=== PATIENT | female | born 1965 | race Caucasian/White ===

== ENCOUNTER 2024-02-23 15:33 | Emergency (ER) | payer OTHER, SELFPAY ==
[2024-02-23 15:36] VITALS: BP 109/77
--- NOTE | 2024-02-23 15:39 | ED.GENMED ---
ED Provider Triage
<Vanessa Finley PROCESSOR HELPER - Last Filed: 02/23/24 15:49>
-
Patient seen by provider in Triage?: Seen in Triage
Attestation: A medical screening examination has been initiated by a qualified medical provider. Based on the assessment performed at this time, it has been determined that an emergent medical condition may exist and the patient has been informed
that further medical evaluation and possible additional diagnostic testing may be needed.
HPI: 58yo female presents for 2 days ago had chills, achy, went to work, poor appetite, yesterday felt worse, stayed home from work, rested, this a.m. headache, took Migraine pill and h/a has subsided. Feels dizzy, general body aches, denies
n/v/d/c. Denies CP, SOB.
Has left lower tooth abscess, chronic. States it is not painful at this time. Took Amoxicillin, then clindamycin, Now taking PCN (none in past 2 days). Scheduled for tooth excision in [place].
Came here from Urgent Care. Had fever 101.6 there
GENERAL: Alert , in no apparent distress
EYE: No visual abnormalities.
NECK: Trachea midline
ENT: No visible abnormalities.
LUNGS: No acute respiratory distress
NEUROLOGICAL: Alert and oriented
SKIN: Skin intact. No visible changes.
MUSCULOSKELETAL: Moving extremities normally
PSYCH: Normal and appropriate interaction.
This is a medical evaluation conducted in person to initiate diagnostic evaluation and provide initial therapeutics. Please see further documentation by the treating clinician.
History of Present Illness
<Vanessa Finley, PROCESSOR HELPER - Last Filed: 02/23/24 15:49>
General
Chief Complaint: Cold/Flu/URI Symptoms
Time Seen by Provider: 02/23/24 17:31
<Lor Martinez, PROCESSOR HELPER - Last Filed: 02/26/24 23:06>
General
Source: patient
Exam Limitations: none
Nursing documentation reviewed up to this point in time: agreed with
History of Present Illness
History of Present Illness:
Patient to ED with complaint headache, bodyaches, dizziness. SHe reports feeling chills appprox 2-3 days ago. Has been dealing with a dental abscess. Was given a course of PCN with improvement and then tooth began to hurt again She was placed
again on PCN but stopped it 3 days ago when shes started to feel ill. No fever. Brought to ED by spouse for eval.
Past History
<Vanessa Finley, PROCESSOR HELPER - Last Filed: 02/23/24 15:49>
Past History
ED Past Medical History: Other (Frequent, intermittent episodes of left upper quadrant abdominal pain, as yet undiagnosed.)
ED Past Surgical History: None
Social History
Tobacco: Non-smoker
Alcohol: Occasional
Drug: None
Personal:
Living: with family
Employment: Employed
Family History
Family History: Other (Noncontributory)
Review of Systems
<Lor Martinez NP - Last Filed: 02/26/24 23:06>
Review of Systems
Allergies reviewed?: Yes
All Other Systems: ROS reviewed and negative except as documented in HPI and ROS
Constitutional: Reports fatigue
EENT: Reports no symptoms
Respiratory: Reports no symptoms
Cardiac: Reports no symptoms
ABD/GI: Reports no symptoms
: Reports no symptoms
Musculoskeletal: Reports no symptoms
Skin: Reports no symptoms
Neurological: Reports dizzy and weakness
Psychiatric: Reports no symptoms
Phy Exam
<Lor Martinez NP - Last Filed: 02/26/24 23:06>
General Physical Exam
General Presentation: mild distress
General age: appears stated age
General Skin: warm and dry
General Habitus: normal
Cardiovascular Exam
Cardiovascular Exam: regular rate/rhythm and no edema
Pulmonary Exam
Pulmonary Exam: lungs clear and no respiratory distress
Gastrointestinal Exam
Gastrointestinal Exam: normal bowel sounds, non tender, soft, no organomegaly, non distended and no cva tenderness
Musculoskeletal Exam
Musculoskeletal Exam: full ROM and neuro vasc intact
Skin Exam
Skin Exam: normal color, warm/dry and no rash
Psychiatric Exam
Psychiatric Exam: normal mood/affect
Course
<Vanessa Finley, PROCESSOR HELPER - Last Filed: 02/23/24 15:49>
Orders/Labs/Results
Orders:
Orders
02/23/24 15:53
Acetaminophen Urgent
Comment: ADDON
Complete Blood Count/With Diff Urgent
Comprehensive Metabolic Panel Urgent
Direct Bilirubin Urgent
Comment: ADD ON
Monotest Urgent
Comment: MONO ADDED ON BY FLOOR 5PM 02-23-24
Salicylate Urgent
Comment: ADDON
02/23/24 16:51
Urinalysis Reflex To Culture Urgent
Date Specimen was Collected: 02/23/24
Time Specimen was Collected: 16:48
Urine Microscopic Reflex Cult Urgent
Urine Culture Urgent
JARAD Source: U
Specimen Description:
Date Specimen was Collected: 02/23/24
Time Specimen was Collected: 16:48
02/23/24 16:57
Add On- LAB Urgent
Tests Added?: [place]
US Abdomen Complete/Upper Urgent
Comment:
Reason For Exam: elevated liver enzymes, fatigue
02/23/24 18:57
Add On- LAB Urgent
Tests Added?: acetamenophen, salicylate
02/23/24 18:59
Hepatitis A IgM Antibody Urgent
Hepatitis B Core Ab, IgM Urgent
Hepatitis B Surface Antibody Urgent
Hepatitis B Surface Antigen Urgent
Hepatitis C Antibody Urgent
02/23/24 19:14
Add On- LAB Urgent
Tests Added?: direct bilirubin, ammonia
02/23/24 20:22
Add On- LAB Urgent
Tests Added?: ammonia
Abnormal Lab Results
02/23/24 02/23/24
15:53 16:51
MCH 32.9 H pg
(27.0-31.0)
Absolute Neuts (auto) 7.6 H 10^3/uL
(1.4-6.5)
Absolute Lymphs (auto) 0.3 L 10^3/uL
(1.2-3.4)
Neutrophils % 91.2 H %
(42.2-75.2)
Lymphocytes % 3.0 L %
(20.5-51.1)
Glucose 113 H mg/dl
(70-99)
Total Bilirubin 4.8 H mg/dl
(0.2-1.3)
Direct Bilirubin 3.3 H mg/dl
(0.0-0.4)
AST 408 H U/L
(14-36)
ALT 920 H* U/L
(0-35)
Alkaline Phosphatase 311 H U/L
(38-126)
Urine Ketones 2+ A
(Negative)
Ur Occult Blood Reflex Trace A
(Negative)
Urine Bilirubin 2+ A
(Negative)
Urine Urobilinogen 2+ A
(Neg - 1+)
Leukocyte Esterase Rfl 2+ A
(Negative)
Urine Bacteria (Reflex) Few A
(Negative)
Salicylates < 1.0 L mg/dl
(2.0-20.0)
Acetaminophen < 10 L ug/ml
(10-30)
Monoscreen Positive A
(Negative)
02/23/24 15:53
02/23/24 15:53
Vital Signs
Initial and Last Documented VS:
Initial Vital Signs
Temp Pulse Resp BP Pulse Ox
99.5 F 120 16 109/77 99
02/23/24 15:36 02/23/24 15:36 02/23/24 15:36 02/23/24 15:36 02/23/24 15:36
Last Documented Vital Signs
Temp Pulse Resp BP Pulse Ox
98.6 F 105 19 101/72 98
02/23/24 19:33 02/23/24 21:04 02/23/24 21:04 02/23/24 21:04 02/23/24 21:04
<Lor Martinez NP - Last Filed: 02/26/24 23:06>
Orders/Labs/Results
Orders:
Orders
02/23/24 15:53
Acetaminophen Urgent
Comment: ADDON
Complete Blood Count/With Diff Urgent
Comprehensive Metabolic Panel Urgent
Direct Bilirubin Urgent
Comment: ADD ON
Monotest Urgent
Comment: MONO ADDED ON BY FLOOR 5PM 02-23-24
Salicylate Urgent
Comment: ADDON
02/23/24 16:51
Urinalysis Reflex To Culture Urgent
Date Specimen was Collected: 02/23/24
Time Specimen was Collected: 16:48
Urine Microscopic Reflex Cult Urgent
Urine Culture Urgent
JARAD Source: U
Specimen Description:
Date Specimen was Collected: 02/23/24
Time Specimen was Collected: 16:48
02/23/24 16:57
Add On- LAB Urgent
Tests Added?: [place]st
US Abdomen Complete/Upper Urgent
Comment:
Reason For Exam: elevated liver enzymes, fatigue
02/23/24 18:57
Add On- LAB Urgent
Tests Added?: acetamenophen, salicylate
02/23/24 18:59
Hepatitis A IgM Antibody Urgent
Hepatitis B Core Ab, IgM Urgent
Hepatitis B Surface Antibody Urgent
Hepatitis B Surface Antigen Urgent
Hepatitis C Antibody Urgent
02/23/24 19:14
Add On- LAB Urgent
Tests Added?: direct bilirubin, ammonia
02/23/24 20:22
Add On- LAB Urgent
Tests Added?: ammonia
Abnormal Lab Results
02/23/24 02/23/24
15:53 16:51
MCH 32.9 H pg
(27.0-31.0)
Absolute Neuts (auto) 7.6 H 10^3/uL
(1.4-6.5)
Absolute Lymphs (auto) 0.3 L 10^3/uL
(1.2-3.4)
Neutrophils % 91.2 H %
(42.2-75.2)
Lymphocytes % 3.0 L %
(20.5-51.1)
Glucose 113 H mg/dl
(70-99)
Total Bilirubin 4.8 H mg/dl
(0.2-1.3)
Direct Bilirubin 3.3 H mg/dl
(0.0-0.4)
AST 408 H U/L
(14-36)
ALT 920 H* U/L
(0-35)
Alkaline Phosphatase 311 H U/L
(38-126)
Urine Ketones 2+ A
(Negative)
Ur Occult Blood Reflex Trace A
(Negative)
Urine Bilirubin 2+ A
(Negative)
Urine Urobilinogen 2+ A
(Neg - 1+)
Leukocyte Esterase Rfl 2+ A
(Negative)
Urine Bacteria (Reflex) Few A
(Negative)
Salicylates < 1.0 L mg/dl
(2.0-20.0)
Acetaminophen < 10 L ug/ml
(10-30)
Monoscreen Positive A
(Negative)
02/23/24 15:53
02/23/24 15:53
Vital Signs
Initial and Last Documented VS:
Initial Vital Signs
Temp Pulse Resp BP Pulse Ox
99.5 F 120 16 109/77 99
02/23/24 15:36 02/23/24 15:36 02/23/24 15:36 02/23/24 15:36 02/23/24 15:36
Last Documented Vital Signs
Temp Pulse Resp BP Pulse Ox
98.6 F 105 19 101/72 98
02/23/24 19:33 02/23/24 21:04 02/23/24 21:04 02/23/24 21:04 02/23/24 21:04
<Lor Martinez PROCESSOR HELPER - Last Filed: 02/26/24 23:06>
*Critical Care Note
Total Time (30-74mins, 75-104mins- exclusive of procedures): Not Applicable
<Lor Martinez PROCESSOR HELPER - Last Filed: 02/26/24 23:06>
Update Note
Update Note:
Patient to ED with complaint of headache, bodyachaes, fatigue, dizziness. Labs reviewed. LFT elevation noted - AST 408, ALT 920, Alk Phos 311, Tbili1.8. Abd. US normal. [place] positive. Discussed case with Dr. Garcia. Ok for discharge.
Recommends repeating LFT's on Monday and then in 1 week to trend levels. Patient will follow up in office and is agreeable to plan. SHe remains awake and alert, nontoxic appearing, Afebrile.
ED Attending Note
<Vanessa Finley PROCESSOR HELPER - Last Filed: 02/23/24 15:49>
-
Portions of this chart may have been created with voice recognition software.� Occasional wrong word or��sound alike� substitutions may have occurred due to the inherent limitations of voice recognition software.
Discharge Plan
Departure
Patient Disposition: Home (Routine Discharge)
Date of Disposition: 02/23/24
Time of Disposition: 20:38
Patient with high blood pressure during this ER visit?: No
Condition: Good
Covid-19: Not Applicable
Discharge Problem:
Mononucleosis, LFT elevation
Instructions: Viral Syndrome (DC), Mononucleosis
Prescriptions:
No Action
Probiotic 1 EACH capsule
1 ea PO DAILY
amitriptyline 50 mg Tablet
50 mg PO DAILY
hydroxyzine HCl 10 mg Tablet
30 mg PO DAILY
aloe vera 25 mg Capsule
3,600 mg PO DAILY
magnesium 200 mg Tablet
200 mg PO DAILY
Uro-MP 118-10-40.8-36 mg Capsule
1 tab PO TID
Referrals:
Clau Garcia MD [Active] - Call in 1-3 days for appt
Robson Lopez MD [Family Provider] - Tomorrow
Stand Alone Forms: Return to Work
Activity Restrictions/Additional Instructions:
YOu will need to have your liver enzymes rechecked on Monday and then again in 1 week. Return to the emergency department immediately for any changes in/worsening of your symptoms
Interventions
Interventions:
*Risk Screen - Suicide Last Done: 02/23/24 15:36
*General Assessment Last Done: 02/23/24 21:04
*Neglect/Abuse Screening Last Done: 02/23/24 15:36
*Nursing Disposition Last Done: 02/23/24 21:04
ED- Pulmonary Assessment Last Done: 02/23/24 17:19
Discharge Date and Time
Discharge Date/Time: 02/23/24 21:05
Print Language: BENGALI
[2024-02-23 16:13] LABS: % Basophils 0.4 % (0-2); % Eosinophils 0.8 % (0-6); % Immature Granulocytes 0.4 % (0-0.5); % Monocytes 4.2 % (1.7-9.3); % Neutrophils 91.2 % (42.2-75.2); Absolute Eosinophils 0.1 10^3/uL (0-0.7); Absolute Lymphocytes 0.3 10^3/uL (1.2-3.4); Absolute Monocytes 0.4 10^3/uL (0.1-0.6); Absolute Neutrophils 7.6 10^3/uL (1.4-6.5); Hematocrit 38.7 % (37.0-47.0); Hemoglobin 13.8 g/dL (12.0-16.0); Mean Corp Hgb Conc. 35.7 g/dL (33.0-37.0); Mean Corpuscular Hgb 32.9 pg (27.0-31.0); Mean Corpuscular Volume 92.1 fL (81.0-99.0); Mean Platelet Volume 8.4 fL (7.4-10.4); Nucleated Red Blood Cells % 0 %; Platelet Count 208 10^3/uL (130-400); Red Cell Dist. Width 12.1 % (11.5-14.5); White Blood Cell Count 8.3 10^3/uL (4.8-10.8)
[2024-02-23 16:26] LABS: AST (SGOT) 408 U/L (14-36); Albumin 4.3 g/dl (3.5-5.0); Alkaline Phosphatase 311 U/L (38-126); Blood Urea Nitrogen 15 mg/dl (7-17); Calcium 9.7 mg/dl (8.4-10.2); Carbon Dioxide 22 mmol/L (22-30); Chloride 102 mmol/L (98-107); Glucose 113 mg/dl (70-99); Sodium 139 mmol/L (135-145); Total Bilirubin 4.8 mg/dl (0.2-1.3); Total Protein 7.3 g/dl (6.3-8.2); eGFR > 60.00
[2024-02-23 16:54] LABS: ALT (SGPT) 920 U/L (0-35)
[2024-02-23 16:57] LABS: Urine Albumin Trace (Neg - Trace); Urine Bilirubin 2+ (Negative); Urine Character Clear (Clear); Urine Color Yellow; Urine Glucose Negative (Negative); Urine Ketone 2+ (Negative); Urine Leukocyte 2+ (Negative); Urine Nitrite Negative (Negative); Urine Occult Blood Trace (Negative); Urine Specific Gravity 1.005 (<1.030); Urine Urobilinogen 2+ (Neg - 1+)
[2024-02-23 17:26] LABS: Urine Squamous Cell >30 /LPF (Few)
[2024-02-23 17:27] LABS: Urine Bacteria Few (Negative); Urine Epithelial Cast 0-2 /LPF; Urine Red Blood Cell 0-2 /HPF (0-2)
[2024-02-23 19:09] LABS: Monotest Positive (Negative)
[2024-02-23 19:48] LABS: Direct Bilirubin 3.3 mg/dl (0.0-0.4)
[2024-02-23 20:10] LABS: Acetaminophen < 10 ug/ml (10-30); Salicylate < 1.0 mg/dl (2.0-20.0)
[2024-02-23 20:18] LABS: Hepatitis B Surface Antigen Negative (Negative)
[2024-02-23 20:24] LABS: Hepatitis A IgM Antibody Negative (Negative); Hepatitis B Core Ab, IgM Negative (Negative)
[2024-02-23 20:35] LABS: Hepatitis B Surface Antibody Negative; Hepatitis C Antibody Negative (Negative)
[2024-02-23 21:04] VITALS: BP 101/72
== END 2024-02-23 21:05 | disposition home or self-care (01) ==
LOC: EMR 15:33
PROVIDERS: Nurse Practitioner; Registered Nurse; EMERGENCY PHYSICIAN Student in an Organized Health Care Education/Training Program; FAMILY PHYSICIAN Internal Medicine
DX: B27.90 Infectious mononucleosis, unspecified without complication (principal); R79.89 Other specified abnormal findings of blood chemistry
CPT/HCPCS: 99284; 76700; 80053; 80143; 80179; 81003; 81015; 82248; 85025; 86308; 86705; 86706; 86709; 86803; 87086; 87340

== ENCOUNTER → 2024-02-26 11:38 | Outpatient (REF) | payer OTHER, SELFPAY ==
[2024-02-26 14:01] LABS: ALT (SGPT) 554 U/L (0-35); AST (SGOT) 151 U/L (14-36); Alkaline Phosphatase 254 U/L (38-126); Total Bilirubin 1.5 mg/dl (0.2-1.3)
== END ==
LOC: REG 11:38
PROVIDERS: ATTENDING PHYSICIAN Nurse Practitioner
DX: B19.9 Unspecified viral hepatitis without hepatic coma (principal)
CPT/HCPCS: 36415; 82247; 84075; 84450; 84460

== ENCOUNTER → 2024-03-23 08:02 | Outpatient (REF) | payer OTHER, SELFPAY ==
[2024-03-23 09:32] LABS: ALT (SGPT) 45 U/L (0-35); AST (SGOT) 30 U/L (14-36); Albumin 4.4 g/dl (3.5-5.0); Alkaline Phosphatase 115 U/L (38-126); Iron 175 ug/dl (37-170); Total Bilirubin 0.8 mg/dl (0.2-1.3); Total Protein 7.2 g/dl (6.3-8.2)
[2024-03-23 09:41] LABS: Percent Saturation 57 % (20-50); Total Iron Binding Capacity 303 ug/dl (265-497)
[2024-03-23 09:59] LABS: Ferritin 25.8 ng/ml (11.1-264.0)
[2024-03-24 23:21] LABS: IgA 212 mg/dl (70-400)
[2024-03-24 23:57] LABS: Endomysial IgA Antibody Titer <1:10 (<1:10)
== END ==
LOC: REG 08:02
PROVIDERS: ATTENDING PHYSICIAN Internal Medicine Gastroenterology; FAMILY PHYSICIAN Internal Medicine
DX: R79.89 Other specified abnormal findings of blood chemistry (principal)
CPT/HCPCS: 36415; 80076; 82728; 82784; 83516; 83540; 83550; 86231

== ENCOUNTER → 2024-04-06 07:40 | Outpatient (REF) | payer OTHER, SELFPAY ==
[2024-04-06 08:54] LABS: ALT (SGPT) 30 U/L (0-35); AST (SGOT) 28 U/L (14-36); Albumin 4.1 g/dl (3.5-5.0); Alkaline Phosphatase 100 U/L (38-126); Total Bilirubin 0.6 mg/dl (0.2-1.3); Total Protein 6.8 g/dl (6.3-8.2)
== END ==
LOC: REG 07:40
PROVIDERS: ATTENDING PHYSICIAN Internal Medicine Gastroenterology; FAMILY PHYSICIAN Internal Medicine
DX: R79.89 Other specified abnormal findings of blood chemistry (principal); E83.19 Other disorders of iron metabolism
CPT/HCPCS: 36415; 80076; 81256